=== PATIENT | male | born 1980 | race Caucasian/White ===

== ENCOUNTER → 2023-10-06 07:44 | Outpatient (CLI) | payer OTHER, SELFPAY ==
--- NOTE | 2023-10-06 07:46 | DI.US.S_ITS ---
PROCEDURE: US SCROTUM INDICATIONS: Left testicle pain TECHNIQUE: Real-time scanning was performed of the scrotum and testicles, with image documentation. Color and pulse Doppler interrogation was performed of both testicles. COMPARISON: None. FINDINGS: Right: Testicle is normal in size at 4.9 x 2.6 x 2.9 cm, and homogenous in echotexture. Epididymis is normal in overall size and morphology. Simple 0.8 cm right epididymal head cyst. No hydrocele or varicoceles. Overlying scrotal skin is normal in thickness. Left: Testicle is normal in size at 4.4 x 2.5 x 3.4 cm, and homogeneous in echotexture. Epididymis is normal in overall size and morphology. Small hydrocele. No varicocele. Overlying scrotal skin is normal in thickness. Doppler: Color and pulse Doppler demonstrate normal and symmetric arterial flow in both testicles. IMPRESSION: No signs of testicular torsion or epididymitis. Small left hydrocele. Approved by: Brett Gaytan M.D. on 10/06/2023 at 8:40
== END ==
LOC: US 07:45
PROVIDERS: PCP Physician Assistant; Referring Provider Physician Assistant; Visit Provider Physician Assistant
DX: N50.812 Left testicular pain (principal); N43.3 Hydrocele, unspecified; N50.3 Cyst of epididymis
CPT/HCPCS: 76870; 93975